=== PATIENT | female | born 1960 | race Caucasian/White ===

== ENCOUNTER → 2016-10-27 | Day surgery (SDC) | payer BC ==
[~2016-10-27] MED LIST: CALTRATE 600+D PO; CERTAGEN PO; CLARITIN10 MG PO; FISH OIL 1,4001 EACH PO; FLEXERIL10 MG PO; FLONASE 0.05% N16 G1; LEXAPRO PO; LIPITOR20 MG PO; LOVAZA; MELOXICAM15 MG PO; NIACIN PO; PREVACID PO; PROTONIX PO; SERTRALINE HCL50 M1 PO; VICODIN 5/500 T1 TAB PO; VITAMIN C500 M5 PO; VITAMIN D35000 UNIT PO; ZANTAC PO; ZYRTEC10 M2 PO
--- NOTE | ~2016-10-27 | OR ---
Unit #: [id number] #: [id number] Patient: STEPHANI GIRALDO [id number] [address] [address] [id number] O MR#: [id number] NAME: STEPHANI GIRALDO. ROOM: Date of Procedure: 10/27/2016 Admission Date: 10/27/2016 Surgeon: Levi Flores M.D. : 1960 Attending Physician: Levi Flores M.D. Primary Care Physician: Perez Duggan M.D. SURGERY CENTER OPERATIVE NOTE PROCEDURE PERFORMED Lumbar epidural steroid injection under x-ray guided needle placement with provider administered conscious sedation. PREOPERATIVE DIAGNOSES 1. Acute lumbar radiculitis. 2. Spinal stenosis, lumbosacral spine. 3. Herniated disk, L4-L5. 4. Degenerative joint disease, lumbosacral spine. 5. Degenerative disk disease, lumbosacral spine. INDICATIONS FOR PROCEDURE The patient presents today with several weeks history of crescendo pattern right lumbar radicular pain, which has been advancing despite ongoing continuous conservative measures. She is in possession of MRI report, which shows multiple-level disease; however, disease most notably worse at the L4-L5 level and this is consistent with her symptomatology. After discussing risks and benefits of proceeding today with a lumbar approach epidural steroid injection, the patient agreed this would be appropriate course of action. DESCRIPTION OF PROCEDURE She was then taken to the operating room, where she was prepped and draped in sterile manner. Standard monitors were applied. She was sedated with 2 mg of IV Versed and required an additional 2 mg of IV Versed throughout the duration of procedure. Lumbar epidural space accessed at L4-L5 level with a slight rightward direction of the needle. Upon loss of resistance, the patient both experienced paresthesia as well as she got return of pain. The needles were then withdrawn and replaced in a more medial position again using loss of resistance and again confirming needle placement at this level with an injection of 2 mL of Omnipaque. There was good superior and inferior flow at this L4-L5 placed needle as well as some rightward direction of our flow. Following this needle placement at the L4-L5 level which required 11 seconds of x-ray time, the patient received an injectate containing 2 mL normal saline, 2 mL of 0.25% bupivacaine, and 80 mg of methylprednisolone. She tolerated this procedure well. She was discharged home with followup instructions, which include return to this clinic on 11/10/2016, at which point, she will be evaluated for an additional epidural steroid injections. She is also referred to [facility] for a potential facet joint injections with radiofrequency ablation due to her facet arthrosis. Unit #: [id number] #: [id number] Patient: STEPHANI GIRALDO Dictated by... Cheyenne Hogan/elsy TD: 10/28/2016 01:30 JOB #: [id number] SUR[facility]ENTER OPERATIVE NOTE Page 1 of 1 X Perez Flores MD X PROCEDURE OPERATIVE NOTE
== END | disposition home or self-care (01) ==
LOC: CCSC 12:43
DX: M51.17 Intervertebral disc disorders with radiculopathy, lumbosacral region (principal); M51.16 Intervertebral disc disorders with radiculopathy, lumbar region; M48.07 Spinal stenosis, lumbosacral region; M47.27 Other spondylosis with radiculopathy, lumbosacral region; K21.9 Gastro-esophageal reflux disease without esophagitis; F17.210 Nicotine dependence, cigarettes, uncomplicated; Z79.1 Long term (current) use of non-steroidal anti-inflammatories (NSAID); Z79.899 Other long term (current) drug therapy; Z90.49 Acquired absence of other specified parts of digestive tract; Z90.710 Acquired absence of both cervix and uterus; Z98.890 Other specified postprocedural states
CPT/HCPCS: J1040; J2250; J2310

== ENCOUNTER → 2016-11-17 | Day surgery (SDC) | payer BC ==
--- NOTE | ~2016-11-17 | OR ---
Unit #: [id number] #: [id number] Patient: STEPHANI GIRALDO [id number] [address] [address] [id number] O MR#: [id number] NAME: STEPHANI GIRALDO. ROOM: Date of Procedure: 11/17/2016 Admission Date: 11/17/2016 Surgeon: Levi Flores M.D. : 1960 Attending Physician: Perez Flores Primary Care Physician: Perez Duggan M.D. SURGERY CENTER OPERATIVE NOTE JOB NOTE: VERIFY MRN PROCEDURE PERFORMED Lumbar epidural steroid injection under x-ray guided needle placement with provider administered conscious sedation. PREOPERATIVE DIAGNOSES 1. Acute lumbar radiculitis. 2. Spinal stenosis, lumbosacral spine. 3. Herniated disk, lumbosacral spine. 4. Degenerative joint disease, lumbosacral spine. 5. Degenerative disk disease, lumbosacral spine. INDICATIONS FOR PROCEDURE The patient presents today status post one previous lumbar approach epidural steroid injection for an acute radiculitis, which had failed to respond to conservative therapy. The patient states she did great initially with almost complete resolution of her symptoms; however, over the course of the past intervening time, the patient has had a return of symptoms to the point that she is uncomfortable and desiring a second epidural steroid injection. She is also pending an evaluation by [facility] for potential radiofrequency ablation of her facet arthrosis and symptomatic facet arthralgia. After discussing risks and benefits of proceeding today with an L5-S1 initial approach and possibility of additional sites depending upon spread of the x-ray dye, the patient agreed this would be the appropriate course of action. DESCRIPTION OF PROCEDURE She was then taken to the operating room, where she was prepped and draped in sterile manner. Standard monitors were applied. She was sedated with 2 mg of IV Versed and required an additional 2 mg of IV Versed throughout the duration of procedure. Lumbar epidural space was accessed at L4, L5, S1 level using loss of resistance technique and x-ray guidance. Needle placement was confirmed with injection of 2 mL of Omnipaque. The dye primarily remained at the L5-S1 level. Following this, the patient had second needle placed at the L4-L5 level at this time again using loss of resistance technique and x-ray guidance; however, following injection of 2 mL of Omnipaque, there was good superior and inferior flow at the L4-L5 level. Total x-ray time for placement of these two needles was 11 seconds. Following successful needle placement confirmation, the patient received an injectate containing 4 mL normal saline and 40 mg of methylprednisolone at each level for a total injectate volume today of 8 mL of normal saline and 80 mg of methylprednisolone. She tolerated these Unit #: [id number] #: [id number] Patient: STEPHANI GIRALDO procedures well and was discharged home with followup scheduled for 02/23/2017. Dictated by... Cheyenne Hogan/elsy TD: 11/17/2016 15:02 JOB #: [id number] SUR[facility] CENTER OPERATIVE NOTE Page 1 of 1 X Perez Flores MD X PROCEDURE OPERATIVE NOTE
== END | disposition home or self-care (01) ==
LOC: CCSC 11-10 09:30
DX: M51.17 Intervertebral disc disorders with radiculopathy, lumbosacral region (principal); M47.27 Other spondylosis with radiculopathy, lumbosacral region; M48.07 Spinal stenosis, lumbosacral region; K21.9 Gastro-esophageal reflux disease without esophagitis; F17.210 Nicotine dependence, cigarettes, uncomplicated; Z79.1 Long term (current) use of non-steroidal anti-inflammatories (NSAID); Z79.51 Long term (current) use of inhaled steroids; Z79.899 Other long term (current) drug therapy; Z90.49 Acquired absence of other specified parts of digestive tract; Z90.710 Acquired absence of both cervix and uterus; Z98.890 Other specified postprocedural states
CPT/HCPCS: J1040; J2250